=== PATIENT | male | born 1960 | race Caucasian/White ===

== ENCOUNTER → 2016-08-30 | Outpatient (CLI) | payer OTHER ==
--- NOTE | 2016-08-30 17:01 | DX ---
Right Hip , 2 views History: Pain without trauma x2 months. M25.551 Findings: The femoral heads are well rounded and normally located. No fracture or dislocation is iden tified. There is a small degenerative cyst involving the lower left pubic bone. Otherwise mineralizat ion is normal. There is chondrocalcinosis of the a lateral acetabular cartilage is, left greater than right, and of the pubic symphysis. Is difficult to exclude sacroiliitis, right greater than left. Th ere is atherosclerotic vascular calcification in the left hemipelvis. Impression: 1. Possible sacroiliitis, right greater than left. Dedicated SI joint films, limited bone scan or MRI might be complementary. 2. Chondrocalcinosis. 3. Degenerative cyst lower left pubic bone. 4. Atherosclerotic disease.
--- NOTE | 2016-08-30 18:11 | DX ---
Cervical Spine and Right Shoulder Clinical History: 56-year-old male with musculoskeletal pain for 2 months radiating to the shoulders , right greater than left. ICD-10 diagnostic codes: M79.1 and M25.511. Comparison Study: None. Findings: CERVICAL SPINE (3 Views, at 3:40 p.m.): There is straightening of the normal cervical lordosis, sugg estive of underlying muscle spasm. The vertebral body heights and posterior alignments are maintained (with the caveat that there is 3 mm of C3 anterolisthesis above C4). There is mild degenerative disk space narrowing at C5-C6 where ventral traction osteophytes are seen. The predental space is normal. The prevertebral soft tissue thickness is normal. The cervicothoracic alignment is maintained. The a tlantoaxial alignment is maintained. The base and the tip of the dens are unremarkable. Trace cervica l dextrocurvature is seen, which may reflect some underlying muscle spasm. Impression: 1. Secondary indicator of underlying cervical muscle spasm. 2. Trace anterolisthesis at C3-C4. 3. Degenerative disk space narrowing at C5-C6, with ventral traction osteophytes. RIGHT SHOULDER (3 Views, at 3:37 p.m.): There is some osseous hypertrophy of the distal clavicle, wi th mild narrowing of the acromioclavicular joint. The glenohumeral alignment is anatomic. The acromio humeral and coracoclavicular distances are appropriate. The scapula, right clavicle, and the visualiz ed right rib cage are otherwise unremarkable. Impression: Mild degenerative change of the acromioclavicular joint, with no acute osseous abnormali ty. If there further clinical concern regarding cervicalgia and potential right radicular symptoms, MR im aging could be considered.
== END ==
LOC: CIMAGING 15:09
PROVIDERS: ATTEND Family Medicine
DX: M50.322 Other cervical disc degeneration at C5-C6 level (principal); M25.511 Pain in right shoulder; M11.251 Other chondrocalcinosis, right hip; M79.9 Soft tissue disorder, unspecified
CPT/HCPCS: 72040-PO; 73030-PO; 73502-PO

== ENCOUNTER → 2016-09-17 | Outpatient (CLI) | payer OTHER ==
--- NOTE | 2016-09-17 10:13 | MR ---
MRI Cervical Spine (Without Contrast) History: M54.12, right radiculopathy, pain and numbness. Technique: Sagittal T1, T2, axial T2, and 3-D gradient echo MR sequences of the cervical spine withou t contrast. Findings: Normal cervical alignment without spondylolisthesis. Cervical vertebral bodies are normal height without compression fractures or spondylolisthesis. Cerebellar tonsils are in normal positio n. Cervical spinal cord demonstrates normal signal without cord edema or myelomalacia. C2-C3: Mild degenerative disk disease without disk herniation or stenosis. C3-C4: Mild degenerative disk disease, moderate left facet arthropathy and mild right facet arthropat hy resulting in mild to moderate left neural foraminal stenosis without central canal stenosis or rig ht neural foraminal stenosis. C4-C5: Mild degenerative disk disease and moderate bilateral facet arthropathy without central canal stenosis or neural foraminal stenosis. C5-C6: Moderate degenerative disk disease with dorsal disk/osteophyte complex, bilateral uncovertebra l osteophytes right greater than left and moderate bilateral facet arthropathy resulting in mild cent ral canal stenosis, moderate to severe right neural foraminal stenosis and mild to moderate left neur al foraminal stenosis. C6-C7: Mild degenerative disk disease with dorsal disk/osteophyte complex resulting in mild central c anal stenosis without neural foraminal stenosis. C7-T1: No disk herniation or stenosis. Impression: 1. C5-C6: Mild central canal stenosis, moderate to severe right neural foraminal stenosis and mild to moderate left neural foraminal stenosis secondary to moderate degenerative disk disease with dorsal disk/osteophyte complex and bilateral uncovertebral osteophytes with moderate bilateral facet arthrop athy. 2. No cord compression or edema. 3. Please see above findings at specific disk levels.
== END ==
LOC: FIMAGING 07:18
PROVIDERS: ATTEND Family Medicine
DX: M99.71 Connective tissue and disc stenosis of intervertebral foramina of cervical region (principal); M50.322 Other cervical disc degeneration at C5-C6 level; M12.88 Other specific arthropathies, not elsewhere classified, other specified site

== ENCOUNTER → 2018-10-23 | Outpatient (CLI) | payer OTHER | LOC: CIMAGING 07:28 | PROVIDERS: ATTEND Family Medicine | DX: K76.0 Fatty (change of) liver, not elsewhere classified (principal) | CPT/HCPCS: 76700-PO ==